=== PATIENT | female | born 1955 | race Caucasian/White ===

== ENCOUNTER 2017-12-30 12:58 | Outpatient (CLI) | payer BC ==
--- NOTE | 2017-12-30 15:51 | MMO ---
BILATERAL DIGITAL SCREENING MAMMOGRAMS: History: 62-year-old female presents for digital screening mammography. Comparison: 08-21-16, 05-01-12 This study is interpreted with the assistance of computer aided detection. FINDINGS: The breasts are heterogeneously dense which can obscure small masses. There are numerous stable typic ally benign calcifications. There is some focal parenchymal density asymmetry as well as a global asy mmetry in the outer subareolar region in the left breast, all of which are stable. IMPRESSION: BIRADS category 2 - benign findings. Continued routine screening. POS: YRIS
== END 2017-12-30 12:59 | disposition home or self-care (01) ==
LOC: SCSMAMMO 12:58
PROVIDERS: ATTEND Family Medicine
DX: Z12.31 Encounter for screening mammogram for malignant neoplasm of breast (principal)
CPT/HCPCS: 77067